=== PATIENT | female | born 1980 | race Caucasian/White ===

== ENCOUNTER 2023-09-21 08:02 | Emergency (ER) | payer OTHER ==
[~2023-09-21] VITALS: Ht 162.6 cm; Wt 61.0 kg
[2023-09-21 08:05] VITALS: O2SAT 100
[2023-09-21 09:19] VITALS: BP 105/72; PULSE 80; RESP 16; TEMP 98
== END 2023-09-21 09:19 | disposition home or self-care (01) ==
LOC: ER 08:02
DX: F41.0 Panic disorder [episodic paroxysmal anxiety] (principal)
CPT/HCPCS: 71045; 93005; 99283